=== PATIENT | male | born 1955 ===

== ENCOUNTER 2018-07-17 11:52 | Day surgery (SDC) | payer OTHER ==
[~2018-07-17] VITALS: Ht 175.3 cm; Wt 74.6 kg
[~2018-07-17 11:52] MED LIST: Advil200 M1 PO
== END 2018-07-17 14:20 | disposition home or self-care (01) ==
LOC: ORSCSDS 11:52
PROVIDERS: Surgery
PROC: 0DBN8ZX Excision of Sigmoid Colon, Via Natural or Artificial Opening Endoscopic, Diagnostic (ICD-10-PCS; principal; 2018-07-17 13:30)
DX: Z12.11 Encounter for screening for malignant neoplasm of colon (principal); D12.5 Benign neoplasm of sigmoid colon
CPT/HCPCS: 88305; J2704; J7120